=== PATIENT | female | born 1970 | race Hispanic/Latino ===

== ENCOUNTER 2019-12-09 12:27 | Emergency (ER) | payer SELFPAY ==
[2019-12-09 12:34] VITALS: BP 150/99
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
== END 2019-12-09 13:38 | disposition left against medical advice (07) ==
LOC: ED 12:27
DX: R20.0 Anesthesia of skin (principal); Z87.891 Personal history of nicotine dependence; Z88.8 Allergy status to other drugs, medicaments and biological substances
CPT/HCPCS: 99282